=== PATIENT | male | born 1950 | race Caucasian/White ===

== ENCOUNTER 2023-04-10 10:05 | Outpatient (OUT) | payer MEDICARE, SELFPAY ==
[2023-04-10 11:14] LABS: Prothrombin Time 48.6 sec (9.0-11.6)
[2023-04-10 11:15] LABS: INR 5.02
== END 2023-04-10 10:06 | disposition home or self-care (01) ==
LOC: LAB 10:15
DX: I48.0 Paroxysmal atrial fibrillation (principal)
CPT/HCPCS: 36415; 85610

== ENCOUNTER 2023-04-11 10:33 | Outpatient (OUT) | payer MEDICARE, SELFPAY ==
[2023-04-11 11:20] LABS: INR 3.77; Prothrombin Time 37.1 sec (9.0-11.6)
[2023-04-11 14:48] LABS: Basophils Percent Auto 0.6 % (0.2-2.0); Eosinophils Absolute Auto 0.2 10^3/uL (0.0-0.7); Eosinophils Percent Auto 2.8 % (0.9-7.0); Hematocrit 33.7 % (42.0-54.0); Hemoglobin 10.5 g/dL (14.0-18.0); Immature Granulocytes Abs Auto 0.02 10^3/uL (0.00-0.03); Immature Granulocytes Pct Auto 0.4 % (0.0-0.5); Lymphocytes Absolute Auto 1.6 10^3/uL (1.2-3.8); Lymphocytes Percent Auto 29.9 % (20.5-60.0); Mean Corpuscular HGB Conc 31.2 g/dL (29.9-35.2); Mean Corpuscular Hemoglobin 29.8 pg (25.9-34.0); Mean Corpuscular Volume 95.7 fL (80.0-94.0); Mean Platelet Volume 9.5 fL (9.5-13.5); Monocytes Percent Auto 18.1 % (1.7-12.0); Neutrophils Absolute Auto 2.6 10^3/uL (1.4-6.5); Neutrophils Percent Auto 48.2 % (43.0-75.0); Platelet Count 206 10^3/uL (150-450); Red Blood Count 3.52 10^6/uL (4.70-6.10); White Blood Count 5.3 10^3/uL (4.0-11.0)
[2023-04-11 15:10] LABS: Alanine Aminotransferase 87 U/L (16-63); Albumin Globulin Ratio 0.7; Albumin Level 2.7 g/dL (3.4-5.0); Alkaline Phosphatase 115 U/L (46-116); Anion Gap 12.5; Aspartate Amino Transferase 36 U/L (15-37); BUN Creatinine Ratio 11.7; Bilirubin Total 0.6 mg/dL (0.2-1.0); Calcium 8.5 mg/dL (8.5-10.1); Carbon Dioxide 23.8 mmol/L (21.0-32.0); Chloride 108 mmol/L (98-107); Estimated GFR (African America 33 (>=60); Estimated GFR (Non-African Ame 27 (>=60); Globulin 3.7 g/dL; Glucose 96 mg/dL (74-106); Potassium 4.3 mmol/L (3.5-5.1); Sodium 140 mmol/L (136-145); Total Protein 6.4 g/dL (6.4-8.2)
== END 2023-04-11 10:34 | disposition home or self-care (01) ==
DX: I48.0 Paroxysmal atrial fibrillation (principal)
CPT/HCPCS: 36415; 80053; 85025; 85610